=== PATIENT | female | born 1985 | race Two or more races ===

== ENCOUNTER 2016-07-07 13:38 | Inpatient (IN) | payer OTHER ==
[~2016-07-07] VITALS: Ht 160 cm; Wt 49.9 kg
[2016-07-07] VITALS (14 sets, daily range): BP systolic 95–138; BP diastolic 58–75
--- NOTE | 2016-07-07 13:40 | NUR ---
Note undone in EDM - 07/07/16 at 1441 by ANAND Bibra from home due to altered mental status. Patient is awake, however appears confused. Patient in mild distress, respiration even and unlabored. Pt sating well on room air. Skin is warm to touch and non diaphoretic. patient is afebrile. Bs in field showed "hi". Recheched done- "hi" result. Gowned pt and placed on tele monitor.
--- NOTE | 2016-07-07 13:40 | NUR ---
Bib from home due to altered mental status. Patient is awake, however appears confused. Patient in mild distress, with kusmaul repiration. Pt sating well on room air. Skin is warm to touch and non diaphoretic. patient is afebrile. Bs in field showed "hi". Recheched done- "hi" result. Gowned pt and placed on tele monitor.
--- NOTE | 2016-07-07 13:41 | NUR ---
MD Boateng at bedside for evaluation
--- NOTE | 2016-07-07 13:41 | NUR ---
Iv accessed to left wrist and right hand 20.covered with dd
[2016-07-07] MEDS ORDERED: IV SET PRIMARY PUMP SET 1 EA INFUS.SET MC ONE ×2 (13:45→14:08)
[2016-07-07] MEDS ORDERED: IV NS 0.9% 1,000 ML ONE ×3 (13:45→14:08)
--- NOTE | 2016-07-07 13:55 | NUR ---
RT AT BS
--- NOTE | 2016-07-07 13:55 | NUR ---
iv ns started at ordered
[2016-07-07 13:58] LABS: BASOPHILS # (AUTO) 0.1 /CMM (0.0-0.2); BASOPHILS % (AUTO) 0.6 % (0.0-2.0); EOSINOPHILS # (AUTO) 0.1 /CMM (0.0-0.7); EOSINOPHILS % (AUTO) 0.3 % (0.0-6.0); HEMATOCRIT 38 % (33-45); HEMOGLOBIN 11.8 g/dL (11.5-14.8); LYMPHOCYTES # (AUTO) 5.7 /CMM (0.8-4.8); MEAN CORPUSCULAR HEMOGLOBIN 31 PG (26.0-33.0); MEAN CORPUSCULAR HGB CONC 31 g/dl (31.0-36.0); MEAN CORPUSCULAR VOLUME 99 fL (82-100); MONOCYTES # (AUTO) 3.5 /CMM (0.1-1.30); MONOCYTES % (AUTO) 14.9 % (2.0-12.0); NEUTROPHILS # (AUTO) 14.3 /CMM (1.8-8.9); NEUTROPHILS % (AUTO) 60.2 % (43.0-81.0); PLATELET COUNT (AUTO) 811 /CMM (150-450); RDW COEFFICIENT OF VARIATION 17.1 (11.5-15.0); RED BLOOD CELL COUNT(AUTO) 3.88 MIL/uL (4.0-5.2); WHITE BLOOD COUNT (AUTO) 23.7 K/uL (4.3-11.0)
--- NOTE | 2016-07-07 13:59 | NUR ---
Servando Practice Nurse at bs for another peripheral line
[2016-07-07] MEDS ORDERED: IV NS 0.9% 1,000 ML BAG IV ONE ×2 (14:00→14:30)
[2016-07-07 14:07] LABS: ABG BASE EXCESS -32.4 mmol/L; ABG OXYGEN SATURATION 76.1 % (92.0-98.5); ABG PCO2 14.8 mmHg (35.0-45.0); ABG PH 6.751 (7.350-7.450); ABG PO2 61.7 mmHg (75.0-100.0); ABG TOTAL HEMOGLOBIN 12.1 G/dL (12.0-16.0); COHb 0.7 % (0.5-1.5); MetHb 0.4 % (0.0-1.5); O2Hb 75.3 % (94.0-97.0); SITE, ABG Right Brachial; VENT MODE, BG VBG
--- NOTE | 2016-07-07 14:15 | NUR ---
ICU 261
[2016-07-07 14:16] LABS: INR 0.93 (0.87-1.13); PROTHROMBIN TIME 9.7 SECS (9.5-12.7)
--- NOTE | 2016-07-07 14:22 | NUR ---
md nielsen at bedside
[2016-07-07 14:32] LABS: APPEARANCE,URINE Clear (CLEAR); BILIRUBIN,URINE Negative (NEGATIVE); BLOOD, URINE Negative Ery/uL (NEGATIVE); COLOR,URINE Yellow (YELLOW); KETONES,URINE >=160 (NEGATIVE); LEUKOCYTE ESTERASE ,URINE Negative (NEGATIVE); NITRITE, URINE Negative (NEGATIVE); PROTEIN,URINE 100 mg/dl (NEGATIVE); UROBILINOGEN,URINE 0.2 EU/dL (0.2)
[2016-07-07 14:33] LABS: UGLUCOSE 500 MG/DL mg/dL (NEGATIVE)
--- NOTE | 2016-07-07 14:39 | NUR ---
dealer support technician at bedside
[2016-07-07] MEDS ORDERED: FAMO20TA8 PO (14:44)
[2016-07-07] MEDS ORDERED: FERR-58 PO (14:44)
[2016-07-07] MEDS ORDERED: HYDR-552 PO (14:44)
[2016-07-07] MEDS ORDERED: ONDA4TAB5 PO (14:44)
[2016-07-07] MEDS ORDERED: ASCO500T9 PO (14:44)
[2016-07-07 14:51] LABS: ADD URINE CULTURE NO; BACTERIA,URINE None seen /HPF (None Seen); RBC,URINE NONE SEEN /HPF (0-2)
[2016-07-07 14:52] LABS: SQUAMOUS EPITHELIAL CELL,UR Rare /HPF (None Seen); URINE AMORPHOUS URATE Few /HPF (None Seen); WBC,URINE 0-2 /HPF (0-3)
[2016-07-07 14:53] LABS: ALBUMIN 2.7 g/dL (3.4-5.0); BILIRUBIN,DIRECT 0.1 mg/dL (0.0-0.2); BILIRUBIN,TOTAL 0.6 mg/dL (0.2-1.0); CALCIUM, SERUM 8.6 mg/dL (8.5-10.1); CREATININE 1.2 mg/dL (0.6-1.3); TOTAL PROTEIN, SERUM 8.5 g/dL (6.4-8.2)
--- NOTE | 2016-07-07 14:55 | NUR ---
SPOKE WITH PHLEBOTOMY SERVICES TECHNICIAN 181 WITH MELLISA TO REPORT DRUGS DISCOVERED ON PATIENT
[2016-07-07 14:58] LABS: CANNABINOID, URINE NEGATIVE (NEGATIVE); PHENCYCLIDINE SCREEN,URINE NEGATIVE (NEGATIVE)
[2016-07-07 15:00] LABS: POTASSIUM 6.2 mmol/L (3.5-5.1)
[2016-07-07] MEDS ORDERED: INSULIN REGULAR, HUMAN 100 UNIT in IV NS 0.9% 99 ML IV PRN ×4 (15:00→16:00)
--- NOTE | 2016-07-07 15:12 | NUR ---
CALLED PHARMACY FOR CALICIUM GLUCONATE
--- NOTE | 2016-07-07 15:21 | NUR ---
REPORT GIVEN TO YARA RN FOR [facility] ICU 261
[2016-07-07] MEDS ORDERED: ONDANSETRON HCL/PF 4 MG/2 ML VIAL ONE (15:26)
[2016-07-07] MEDS ORDERED: ONDANSETRON HCL/PF 4 MG/2 ML VIAL IVP ONE (15:30)
[2016-07-07] MEDS ORDERED: Calcium Gluconate 1GM/10ML 4.65 MEQ in IV D5W 50 ML IV ONE (15:30)
--- NOTE | 2016-07-07 15:48 | NUR ---
PATIENT TRASPORTED TO ICU VIA ACLS PROTOCOL
--- NOTE | 2016-07-07 15:57 | NUR ---
ADMIT NOTE PT BROUGHT INTO ER FOR ALTERED MENTAL STATUS AND KUSSMALS RESPIRATIONS. BLOOD GLUCOSE IN THE FIELD IS "HI" AND IN E.R. IT IS 852. UPON BODY ASSESSMENT IN ER, THEY FOUND A PACKAGE TUCKED INTO HER ARMPIT WHICH CONTAINED WHAT SEEMED TO BE ILLICIT SUBSTANCES SUSPICIOUS OF METHAMPHETAMINES. TOX SCREEN POSITIVE FOR AMPHETAMINES. RECVD IN ICU ON 8UNIT/HR INSULIN GTT. BLOOD GLUCOSE CHECKED "HI," ORDERS PLACED FOR STAT BMP TO DETERMINE BLOOD GLUCOSE. DR. MASON NOTIFIED FOR ORDERS. SHE IS ALSO INTERMITTENLY SCREAMING AT THE TOP OF HER LUNGS. IRRITABLE AND RESPONSIVE TO TOUCH BUT DOES NOT FOLLOW DIRECTIONS. SINUS TACH 110, SBP 130'S 99% SPO2 ON RA.
[2016-07-07 16:00] LABS: ANISOCYTOSIS 1+; BAND % (MANUAL) 4 % (0.0-5.0); LYMPHOCYTES % (MANUAL) 43 % (16-48); MONOCYTES % (MANUAL) 16 % (0-11.0); NEUTROPHILS % (MANUAL) 37 (42-76); PLATELET ESTIMATE INCREASED
[2016-07-07] MEDS ORDERED: SODIUM POLYSTYRENE SULFONATE 15 G/60 ML BOTTLE PO ONE (16:00)
[2016-07-07] MEDS ORDERED: ONDANSETRON HCL/PF 4 MG/2 ML VIAL IVP PRN (16:00)
[2016-07-07] MEDS ORDERED: ACETAMINOPHEN 325 MG TABLET PO PRN (16:00)
[2016-07-07] MEDS ORDERED: LORAZEPAM INJ 2 MG/ML VIAL IV PRN (16:00)
[2016-07-07] MEDS ORDERED: ENOXAPARIN SODIUM 30 MG/0.3 ML DISP.SYRIN SQ SCH (16:00)
[2016-07-07] MEDS ORDERED: SECONDARY IV SET 1 EA INFUS.SET MC ONE (16:52)
[2016-07-07] MEDS: LEVOFLOXACIN 750 MG /D5W 150ML 750 MG in PREMIX 1 EA IV SCH (16:56)
[2016-07-07 17:04] LABS: ALBUMIN 2.6 g/dL (3.4-5.0); BILIRUBIN,TOTAL 0.6 mg/dL (0.2-1.0); CALCIUM, SERUM 8.5 mg/dL (8.5-10.1); CREATININE 1.3 mg/dL (0.6-1.3); POTASSIUM 4.7 mmol/L (3.5-5.1); TOTAL PROTEIN, SERUM 8.9 g/dL (6.4-8.2)
[2016-07-07] MEDS: ENOXAPARIN SODIUM 40 MG/0.4 ML DISP.SYRIN SQ SCH (17:06)
[2016-07-07] MEDS: IV NS 0.9% 1,000 ML IV PRN (17:06)
--- NOTE | 2016-07-07 17:50 | NUR ---
DR. MASON NOTIFIED ABOUT GLUCOSE LEVEL AT 697. PER THE ALGORITHM INCREASE INSULIN TO 20 UNITS/HR. SHE IS AWARE OF 20 UNITS AND GIVES NO OTHER ORDERS.
--- NOTE | 2016-07-07 18:06 | NUR ---
BLOOD GLUCOSE AT 1800 IS 522. PER ALGORITHM, TITRATE INFUSION TO 20 UNITS/HR AND NOTIFY MD. DR. MASON AWARE OF 522, NO NEW ORDERS THE SUGAR IS TRENDING DOWN ON THIS ALGORITHM.
[2016-07-07] MEDS: BLOOD SUGAR DIAGNOSTIC 1 EACH STRIP IN SCH ×6 (18:10→23:00)
[2016-07-07 20:01] LABS: ABG BASE EXCESS -19.7 mmol/L; ABG OXYGEN SATURATION 97.9 % (92.0-98.5); ABG PCO2 15.9 mmHg (35.0-45.0); ABG PH 7.205 (7.350-7.450); ABG PO2 144.4 mmHg (75.0-100.0); ABG TOTAL HEMOGLOBIN 10.3 G/dL (12.0-16.0); AaDO2 36.5 mmHg; COHb 0.3 % (0.5-1.5); MetHb 0.6 % (0.0-1.5); SITE, ABG Left Radial; VENT MODE, BG N/C
--- NOTE | 2016-07-07 20:10 | NUR ---
BOBBIN TRUCKER: MD CALL: SPOKE WITH DR HARTLEY REGARDING CRITICAL ABG RESULT ,JUST DONE , BECAUSE THE PREVIOUS ABG DONE IN ER LOOKS CRITICAL, NOTIFIED DR HARTLEY: PH 7.205, PCO2 15.9, PO2 144.4, HCO3 6.1., ORDERS TO CHECK ABG IN AM AT 0800, CONTINUE INSULIN DRIP PER PROTOCOL, ACCU CHECK Q1 LAST BS 370, NS AT 150 ML/HR WHICH OS ONGOING.... RECEIVED PT FROM YARA/MAXIMINO, PT ADMITTED TODAY DX DKA, ONGOING INSULIN DRIP PER PROTOCOL ALGORITHM # 4, PT IS STILL ALTERED, DROWSY, RESPONSIVE TO VERBAL AND TOUCH STIMULATION ASKING WATER, PT IS NPO. NS RUNNING AT 150 ML/HR. JEFFERS CATH TO GRAVITY DRAINING GOOD URINE OUTPUT. V/S STABLE. MIDLINE INSERTED BY YARA/MAXIMINO,LAC #18. ALL NEEDS ATTENDED. SKIN IS INTACT. PLAN: CMP Q4, CONTINUE DRIP AT THIS TIME, FOLLOW THE PROTOCOL. ONGOING MONITORING...
--- NOTE | 2016-07-07 22:08 | NUR ---
METROLOGY SPECIALIST: REDRAWN CMP AT 2200 DUE TO HEMOLYZED BLOOD, NEXT WILL BE AT 0200 AM. LAST BLOOD SUGAR 200, INSULIN DRIP DECREASED TO 3 UNITS/HR PER PROTOCOL. KEEP MONITORING....
[2016-07-07 22:37] LABS: ALBUMIN 2.1 g/dL (3.4-5.0); BILIRUBIN,TOTAL 0.5 mg/dL (0.2-1.0); CALCIUM, SERUM 8.1 mg/dL (8.5-10.1); POTASSIUM 3.7 mmol/L (3.5-5.1)
[2016-07-08] VITALS (29 sets, daily range): BP systolic 103–132; BP diastolic 57–82
[2016-07-08] MEDS: BLOOD SUGAR DIAGNOSTIC 1 EACH STRIP IN SCH ×8 (00:58→21:23)
[2016-07-08] MEDS: IV NS 0.9% 1,000 ML IV PRN (01:21)
[2016-07-08 02:31] LABS: BILIRUBIN,TOTAL 0.4 mg/dL (0.2-1.0); CALCIUM, SERUM 7.9 mg/dL (8.5-10.1); POTASSIUM 3.8 mmol/L (3.5-5.1); TOTAL PROTEIN, SERUM 6.8 g/dL (6.4-8.2)
[2016-07-08] MEDS ORDERED: IV D5/ 0.9% NACL 1,000 ML IV ONE (02:51)
--- NOTE | 2016-07-08 02:51 | NUR ---
RFID MANAGER; CALL REGARDING CMP RESULT RELAYED TO DR HARTLEY, ORDERS TO STOP INSULIN DRIP, CHANGE IV FLUID TO D5NS AT 100 ML/HR BECAUSE PT UNABLE EAT, ACCU CHECK Q4H WITH MILD INSULIN COVERAGE.
[2016-07-08] MEDS: IV D5/ 0.9% NACL 1,000 ML IV PRN ×2 (02:55→16:13)
[2016-07-08] MEDS ORDERED: DEXTROSE 50%-WATER 50 ML DISP.SYRIN IV PRN ×2 (03:00→18:30)
[2016-07-08] MEDS ORDERED: INSULIN REGULAR, HUMAN 100 UNIT/ML 10 ML VIAL ONE (04:45)
[2016-07-08] MEDS: INSULIN REGULAR, HUMAN 100 UNIT/ML 3 ML VIAL SQ PRN ×5 (05:47→21:36)
--- NOTE | 2016-07-08 07:30 | NUR ---
ICU/RN: PT HOSTILE TO CARE, SCREAMS "DON'T TOUCH ME UNLESS YOU'LL FEED ME." REFUSED AM LABS AND SKIN AX. WILL REATTEMPT AT LATER TIME.
[2016-07-08] MEDS: PANTOPRAZOLE 40 MG VIAL IV SCH (08:04)
--- NOTE | 2016-07-08 08:45 | NUR ---
ICU/RN: PT NOTED TO BE DROWSY, A&OX3 WITH PERIODS OF FORGETFULNESS, ORIENTED TO PLACE AND TIME. AGREED TO HAVE AM LABS, ABG AND BLOOD GLUCOSE CHECK. REINFORCED NEED FOR POC COMPLIANCE. WILL CONT TO EDUCATE.
[2016-07-08 09:27] LABS: INR 0.96 (0.87-1.13); PROTHROMBIN TIME 10.3 SECS (9.5-12.7)
[2016-07-08 09:32] LABS: LACTIC ACID 0.8 mmol/L (0.4-2.0)
[2016-07-08 09:41] LABS: ALBUMIN 1.9 g/dL (3.4-5.0); BILIRUBIN,TOTAL 0.3 mg/dL (0.2-1.0); CALCIUM, SERUM 7.6 mg/dL (8.5-10.1); MAGNESIUM 1.3 mg/dL (1.8-2.4); PHOSPHORUS 2.6 mg/dL (2.5-4.9); POTASSIUM 3.4 mmol/L (3.5-5.1); TOTAL PROTEIN, SERUM 6.5 g/dL (6.4-8.2)
[2016-07-08 09:45] LABS: CREATINE KINASE MB 0.8 ng/mL (0-3.6)
[2016-07-08 09:46] LABS: THYROID STIMULATING HORMONE 2.701 uIU/mL (0.358-3.74)
[2016-07-08 09:54] LABS: BASOPHILS % (AUTO) 0.2 % (0.0-2.0); EOSINOPHILS # (AUTO) 0.1 /CMM (0.0-0.7); EOSINOPHILS % (AUTO) 1.2 % (0.0-6.0); HEMATOCRIT 26 % (33-45); HEMOGLOBIN 8.5 g/dL (11.5-14.8); LYMPHOCYTES # (AUTO) 1.6 /CMM (0.8-4.8); LYMPHOCYTES % (AUTO) 18.5 % (20.0-44.0); MEAN CORPUSCULAR HEMOGLOBIN 29 PG (26.0-33.0); MEAN CORPUSCULAR HGB CONC 33 g/dl (31.0-36.0); MEAN CORPUSCULAR VOLUME 88 fL (82-100); MONOCYTES % (AUTO) 11.2 % (2.0-12.0); NEUTROPHILS % (AUTO) 68.9 % (43.0-81.0); PLATELET COUNT (AUTO) 481 /CMM (150-450); RDW COEFFICIENT OF VARIATION 17.4 (11.5-15.0); RED BLOOD CELL COUNT(AUTO) 2.93 MIL/uL (4.0-5.2); WHITE BLOOD COUNT (AUTO) 8.8 K/uL (4.3-11.0)
[2016-07-08] MEDS ORDERED: IV NS 0.9% 500 ML IV ONE ×2 (12:00→12:30)
[2016-07-08] MEDS ORDERED: IV SET PRIMARY PUMP SET 1 EA INFUS.SET MC ONE (12:07)
[2016-07-08] MEDS ORDERED: Magnesium 1 GM/2 ML VIAL IV ONE (13:00)
[2016-07-08] MEDS ORDERED: SECONDARY IV SET 1 EA INFUS.SET MC ONE (13:45)
[2016-07-08] MEDS: Magnesium 1GM/D5W 100ML PREMIX 100 ML IV SCH ×2 (13:49→14:46)
--- NOTE | 2016-07-08 14:00 | NUR ---
ICU/RN: PT NOW WITH INCREASING ALERTNESS, A&OX3, TOLERATED LUNCH ATE 75%. NO S/S ASPIRATION. FC DC'D PER COMBINATION PRESSER ORDERS. TOLERATED WELL. URINE SENT TO LAB.
--- NOTE | 2016-07-08 15:37 | NUR ---
ICU/RN: ISABELLE SKINNER NP NOTIFIED OF NEED FOR HOME MED RECONCILIATION. AWAITING ORDERS.
[2016-07-08] MEDS: LEVOFLOXACIN 750 MG /D5W 150ML 750 MG in PREMIX 1 EA IV SCH (16:13)
[2016-07-08 16:25] LABS: APPEARANCE,URINE SL CLOUDY (CLEAR); BILIRUBIN,URINE NEGATIVE (NEGATIVE); BLOOD, URINE NEGATIVE Ery/uL (NEGATIVE); COLOR,URINE YELLOW (YELLOW); KETONES,URINE TRACE (NEGATIVE); LEUKOCYTE ESTERASE ,URINE NEGATIVE (NEGATIVE); NITRITE, URINE NEGATIVE (NEGATIVE); PROTEIN,URINE NEGATIVE (NEGATIVE); UGLUCOSE NEGATIVE (NEGATIVE); UROBILINOGEN,URINE 0.2 EU/dL (0.2)
[2016-07-08 16:56] LABS: ADD URINE CULTURE NO; BACTERIA,URINE Rare /HPF (None Seen); COARSE GRANULAR CASTS,URINE Few /LPF (None Seen); FINE GRANULAR CASTS,URINE Few /LPF (None Seen); SQUAMOUS EPITHELIAL CELL,UR Few /HPF (None Seen)
[2016-07-08] MEDS ORDERED: IV NS 0.9% 1,000 ML IV PRN (18:30)
--- NOTE | 2016-07-08 18:30 | NUR ---
ICU/RN: PT TRANSFERRED TO MED/SURG 318 IN STABLE CONDITION NO S/S PAIN OR DISTRESS. NO N/V, TOLERATED DINNER WELL. ALL PAPERWORK AND BELONGINGS ACCOUNTED FOR. CARE ENDORSED TO MAXIMINO RIVERA FOR JAMAL.
--- NOTE | 2016-07-08 18:30 | NUR ---
MS/BLOW MOLD TECHNICIAN FROM ICU PT. WAS TRANSFERRED IN A BED FROM ICU TO ROOM 318. PT. IS IN STABLE CONDITION, A&OX4. NO S/S OF SOB, BREATHING EVENLY ON ROOM AIR. NO S/S OF DISTRESS. PT. VITAL SIGNS ASSESSED. PT. LAST BLOOD SUGAR WAS 236, AND 6 UNITS OF INSULIN WAS GIVEN IN ICU. PT. IS ON DIABETIC DIET AND HAD DINNER IN ICU. JEFFERS WAS DISCONTINUED IN ICU, AND NO INITIAL VOID POST JEFFERS. PT. WAS ADVISED TO LET NURSE KNOW WHEN SHE HAS URGE TO VOID TO ASSIST HER OUT OF BED. IV FLUIDS, D5 NS DISCONTINUED FROM ICU. INSULIN DRIP DISCONTINUED IN ICU. BED IS IN LOW POSITION, 2 SIDE RAILS UP, CALL LIGHT WITHIN REACH, AND ALL NEEDS ATTENDED TO. WILL ENDORSE REPORT TO BAKERY PASTRY INTERNSHIP NURSE.
--- NOTE | 2016-07-08 20:00 | NUR ---
MS VEHICLE OPERATOR INITIAL NOTES RECEIVED PT IN BED LYING DOWN RESTING BUT AROUSES TO TOUCH. DENIES ANY PAIN OR ANY DISCOMFORT AT THIS TIME. SHE JUST STATED SHE FEEL TIRED LYING DOWN ENCOURAGED HER TO SIT FOR A WHILE AND OFFERED SOMETHING OT DRINK . SHE STATED MAYBE SANDWICH LATER. SPOKE TO HER THAT I WILL CHECK HER BLOOD SUGAR FIRST THE I WILL SERVE HER SANDWICH . 3 HEPLOCK AT THIS TIME AND ALL PATENT AND INTACT. AMBULATE WITHOUT ANY DISCOMFORT, DENIES ANY DIZZINESS AT THIS TIME. KEPT HER COMFORTABLE AT ALL TIMES. WILL CONTINUE TO MONITOR. PLACE CALL LIGHT AT REACH.
[2016-07-08] MEDS: ENOXAPARIN SODIUM 40 MG/0.4 ML DISP.SYRIN SQ SCH ×2 (21:00→21:37)
--- NOTE | 2016-07-08 21:33 | NUR ---
MS PYROMETER TEMPERATURE REGULATOR NOTES BLOOD SUGAR 231, 10 UNITS OF LEVEMIR GIVEN JONATAN SQ WELL HER INSULIN 4 UNITS, NO SIGNS OF HYPER GLYCEMIA NOTED, SNACKS ALSO SERVED. WILL CONTINUE TO MONITOR.
[2016-07-08] MEDS ORDERED: INSULIN DETEMIR 100 UNIT/ML CARTRIDGE SQ SCH (22:00)
--- NOTE | 2016-07-09 | NUR ---
MOTORSPORTS TECHNICIAN/NOTES PT SLEEPING COMFORTABLY IN BED WITHOUT ANY ACUTE DISTRESS NOTED. KEPT HER WARM AND COMFORTABLE AT ALL TIMES. WILL CONTINUE TO MONITOR. PLACE CALL LIGHT AT REACH.
[2016-07-09] MEDS: BLOOD SUGAR DIAGNOSTIC 1 EACH STRIP IN SCH ×2 (06:15→11:43)
[2016-07-09] MEDS: INSULIN REGULAR, HUMAN 100 UNIT/ML 3 ML VIAL SQ PRN ×2 (06:17→11:51)
--- NOTE | 2016-07-09 07:00 | NUR ---
ORGANIZATIONAL DEVELOPMENT CONSULTANT/CLOSING NOTES PT BACK TO REST AFTER BLOOD SUGAR CHECKED DONE. 135, 2 UNITS OF INSULIN GIVEN ORDERED, NO SIGNS OF HYPO/HYPER GLYCEMIA NOTED. ALL DUE MEDS GIVEN AND ALL NEEDS MET. STABLE JONATAN THE NIGHT . ENCOURAGE HER TO SIT IN THE CHAIR OR AMBULATE WELL FOR HER OWN GOOD AND PT UNDERSTOOD WELL. ENDORSE TO AM NURSE FOR CONTINUITY OF CARE. PLACE CALL LIGHT AT REACH.
[2016-07-09 08:00] VITALS: BP 115/80
[2016-07-09 08:16] LABS: BASOPHILS # (AUTO) 0.1 /CMM (0.0-0.2); EOSINOPHILS # (AUTO) 0.2 /CMM (0.0-0.7); HEMATOCRIT 28 % (33-45); HEMOGLOBIN 9.1 g/dL (11.5-14.8); LYMPHOCYTES % (AUTO) 47.5 % (20.0-44.0); MEAN CORPUSCULAR HEMOGLOBIN 29 PG (26.0-33.0); MEAN CORPUSCULAR HGB CONC 33 g/dl (31.0-36.0); MEAN CORPUSCULAR VOLUME 88 fL (82-100); MONOCYTES % (AUTO) 15.8 % (2.0-12.0); NEUTROPHILS % (AUTO) 32.7 % (43.0-81.0); PLATELET COUNT (AUTO) 455 /CMM (150-450); RDW COEFFICIENT OF VARIATION 17.5 (11.5-15.0); RED BLOOD CELL COUNT(AUTO) 3.13 MIL/uL (4.0-5.2); WHITE BLOOD COUNT (AUTO) 6.2 K/uL (4.3-11.0)
[2016-07-09] MEDS: PANTOPRAZOLE 40 MG VIAL IV SCH (08:23)
[2016-07-09 08:56] LABS: ALBUMIN 1.7 g/dL (3.4-5.0); BILIRUBIN,TOTAL 0.2 mg/dL (0.2-1.0); CALCIUM, SERUM 7.6 mg/dL (8.5-10.1); CREATININE 0.5 mg/dL (0.6-1.3); TOTAL PROTEIN, SERUM 6.2 g/dL (6.4-8.2)
[2016-07-09] MEDS ORDERED: ASCORBIC ACID 500 MG TABLET PO SCH (09:00)
[2016-07-09] MEDS ORDERED: FERROUS SULFATE (325 MG) 325 MG/TAB TABLET PO SCH (09:00)
--- NOTE | 2016-07-09 10:00 | NUR ---
RN NOTES RECEIVED PT BED, A/Ox4, RESPIRATION EVEN AND UNLABORED, NO SOB NOTED, R HAND AND L WRIST AND LAC IV SITE CDI, SR UPx3, BED LOCKED AND IN LOWEST POSITION , CONTINUE TO MONITOR PT CLOSELY AND NOTIFY MD FOR ANY SIGNIFICANT CHANGES.
[2016-07-09 12:49] LABS: NEUTROPHILS % (MANUAL) 34 (42-76)
[2016-07-09 12:50] LABS: ANISOCYTOSIS 2+; EOSINOPHILS % (MANUAL) 3 % (0-4); LYMPHOCYTES % (MANUAL) 48 % (16-48); MONOCYTES % (MANUAL) 15 % (0-11.0); PLATELET ESTIMATE INCREASED
[2016-07-09] MEDS: POTASSIUM CHLORIDE 20 MEQ TAB.PRT.SR PO SCH ×3 (12:55→15:01)
[2016-07-09] MEDS ORDERED: INSULIN ASPART NOVOLOG 100 UNIT/ML CARTRIDGE SQ SCH (13:00)
--- NOTE | 2016-07-09 15:24 | NUR ---
RN NOTES POTASSIUM REPLACEMENT COMPLETED , DISCHARGE INSTRUCTION GIVEN , PT VERBALIZES UNDERSTATING , PT WAITING FOR HER FAMILY TO PICK HER UP .
--- NOTE | 2016-07-09 15:47 | NUR ---
RN NOTES IV SITES DISCONTINUED, P LEFT THE FLOOR AMBULATORY ACCOMPANIED BY STAFF AND FAMILY MEMBERS TO MAIN ENTRANCE IN STABLE CONDITION .
== END 2016-07-09 15:30 | disposition home or self-care (01) | DRG 420 ==
LOC: ER 13:41 → ICU 14:41 → MED 07-08 18:43
PROVIDERS: ADMIT Internal Medicine; ATTEND Internal Medicine
PROC: 05H633Z Insertion of Infusion Device into Left Subclavian Vein, Percutaneous Approach (ICD-10-PCS; principal; 2016-07-07)
DX: E10.10 Type 1 diabetes mellitus with ketoacidosis without coma (principal); G93.41 Metabolic encephalopathy; E44.0 Moderate protein-calorie malnutrition; Z79.4 Long term (current) use of insulin; Z91.14 Patient's other noncompliance with medication regimen; Z91.19 Patient's noncompliance with other medical treatment and regimen; D72.828 Other elevated white blood cell count; D75.89 Other specified diseases of blood and blood-forming organs; F15.90 Other stimulant use, unspecified, uncomplicated; Z68.1 Body mass index [BMI] 19.9 or less, adult; E87.8 Other disorders of electrolyte and fluid balance, not elsewhere classified
CPT/HCPCS: 36415; 36600; 71010-TC; 80048-TC; 80053-TC; 80061-TC; 80076-TC; 80305; 81000-TC; 82140-TC; 82553-TC; 82803-TC; 82962-TC; 83605-TC; 83735-TC; 84100-TC; 84439-TC; 84443-TC; 84484-TC; 84703-TC; 85025-TC; 85730-TC; 87040-TC; 87081-TC; 87086-TC; 93307-TC; A4216; A4606; C9113; J0610; J1650; J1815; J1956; J2405; J3475; J7030; J7040; J7042; J7060; Z7610

== ENCOUNTER 2022-06-04 22:26 | Emergency (ER) | payer OTHER ==
[~2022-06-04] VITALS: Ht 165.1 cm; Wt 88.9 kg
[~2022-06-04 22:26] MED LIST: ASCO-352 PO; FAMO20TA8 PO; FERR325T24 PO; HYDR-4384 PO; ONDA4TAB5 PO
--- NOTE | 2022-06-04 22:32 | NUR ---
BIBRA FROM HOME C/O BG OF 39. GIVEN D10 250MLS BY RA. UPON TRIAGE BG 129. PT PLACED COMFORTABLY IN BED, VITALS CHECKED. PT AAOX4, ABLE TO MAKE NEEDS KNOWN.
--- NOTE | 2022-06-04 22:34 | NUR ---
BG 120
--- NOTE | 2022-06-04 23:00 | NUR ---
PT STATES SHE'S ON ADMELOG INSULIN PUMP FOR DM TYPE 1
--- NOTE | 2022-06-04 23:00 | NUR ---
PT EATING SANDWICH, DRANK 8OZ JUICE. MADE AWARE THAT BLOOD SUGAR WILL BE RE-CHECKED IN 30 MIN.
[2022-06-04] MEDS ORDERED: ACETAMINOPHEN ES 500 MG TABLET ONE (23:27)
[2022-06-04] MEDS: ACETAMINOPHEN ES 500 MG TABLET PO ONE (23:28)
--- NOTE | 2022-06-04 23:30 | NUR ---
DINING CAR HOP AT BEDSIDE
--- NOTE | 2022-06-04 23:39 | NUR ---
FI=[id number]
[2022-06-04 23:50] LABS: BASOPHILS # (AUTO) 0.1 K/uL (0.0-0.2); BASOPHILS % (AUTO) 1.5 % (0.0-2.0); EOSINOPHILS % (AUTO) 1.6 % (0.0-6.0); HEMATOCRIT 26 % (33-45); HEMOGLOBIN 7.9 g/dL (11.5-14.8); LYMPHOCYTES # (AUTO) 2.3 K/uL (0.8-4.8); LYMPHOCYTES % (AUTO) 25.5 % (20.0-44.0); MEAN CORPUSCULAR HGB CONC 31 g/dl (31.0-36.0); MEAN CORPUSCULAR VOLUME 79 fL (82-100); MONOCYTES # (AUTO) 0.8 K/uL (0.1-1.30); MONOCYTES % (AUTO) 8.7 % (2.0-12.0); NEUTROPHILS # (AUTO) 5.7 K/uL (1.8-8.9); NEUTROPHILS % (AUTO) 62.7 % (43.0-81.0); PLATELET COUNT (AUTO) 649 K/uL (150-450); RED BLOOD CELL COUNT(AUTO) 3.31 MIL/uL (4.0-5.2); WHITE BLOOD COUNT (AUTO) 9.1 K/uL (4.3-11.0)
[2022-06-05 00:09] LABS: CALCIUM, SERUM 8.5 mg/dL (8.5-10.1); POTASSIUM 3.4 mmol/L (3.5-5.1)
--- NOTE | 2022-06-05 00:18 | NUR ---
LI=[id number]
[2022-06-05 00:24] LABS: ALBUMIN 1.7 g/dL (3.4-5.0); BILIRUBIN,TOTAL 0.1 mg/dL (0.2-1.0); TOTAL PROTEIN, SERUM 7.3 g/dL (6.4-8.2)
[2022-06-05] MEDS: IV NS 0.9% 1,000 ML IV ONE (00:30)
--- NOTE | 2022-06-05 01:05 | NUR ---
KK=[id number]
--- NOTE | 2022-06-05 02:25 | NUR ---
BG 159
--- NOTE | 2022-06-05 02:35 | NUR ---
PROCUREMENT ENGINEER AT BEDSIDE
--- NOTE | 2022-06-05 03:00 | NUR ---
PT C/O HEADACHE, 08/03. NOTIFIED. ORDERS RECEIVED FOR BENADRYL & COMPAZINE.
[2022-06-05 03:01] LABS: CALCIUM, SERUM 7.8 mg/dL (8.5-10.1)
--- NOTE | 2022-06-05 03:02 | NUR ---
[id number]
[2022-06-05] MEDS ORDERED: diphenhydrAMINE HCL 50 MG/ML VIAL ONE (03:12)
[2022-06-05] MEDS ORDERED: PROCHLORPERAZINE EDISYLATE 10 MG/2 ML VIAL ONE (03:12)
[2022-06-05] MEDS: diphenhydrAMINE HCL 50 MG/ML VIAL IV ONE (03:13)
[2022-06-05] MEDS: PROCHLORPERAZINE EDISYLATE 10 MG/2 ML VIAL IVP ONE (03:13)
--- NOTE | 2022-06-05 04:24 | NUR ---
AUTH# FOR AMBULANCE [id number]
--- NOTE | 2022-06-05 04:27 | NUR ---
BG 201
--- NOTE | 2022-06-05 05:26 | NUR ---
ZI=[id number]
--- NOTE | 2022-06-05 05:56 | NUR ---
PT ACCEPTED TO [facility] BY DR HINOJOSA. ROOM 410-A. # FOR REPORT [phone]. YELENA - ALTERATIONS SUPERVISOR [phone].
--- NOTE | 2022-06-05 06:35 | NUR ---
ZO=[id number]
--- NOTE | 2022-06-05 06:44 | NUR ---
[facility] CALLED S TRANSPORT ARRANGED FOR 07:45
--- NOTE | 2022-06-05 07:31 | NUR ---
REPORT GIVEN TO DAYSI STANTON FOR CONTINUATION OF CARE.
--- NOTE | 2022-06-05 07:34 | NUR ---
REPORT GIVEN TO MAXIMINO FORMAN FOR CONTINUITY OF CARE
--- NOTE | 2022-06-05 07:40 | NUR ---
Patient in bed, sleeping, easily aroused. AOx4, able to express her concerns. Patient with no signs of distress or discomfort. Patient states she is aware of plan of care, verbalized agreeement. All safety precautions taken, will continue to monitor throughout shift and provide care as needed.
--- NOTE | 2022-06-05 09:09 | NUR ---
Transport/[place]qi professional, unit #290. Cam. Transport her to garbage pick up worker pt and trasnfer to [facility]. Called [phone], spoke with Magdalena and provided updates. Patient cleared for transfer.
--- NOTE | 2022-06-05 09:12 | NUR ---
Blood Sugar 124.
--- NOTE | 2022-06-05 09:17 | NUR ---
Spoke with patient, made her aware of transfer and plan of care. Patient verbalized agreement.
[2022-06-05 09:34] VITALS: BP 120/66
== END 2022-06-05 09:30 | disposition short-term general hospital (02) ==
LOC: ER 22:28
DX: E10.65 Type 1 diabetes mellitus with hyperglycemia (principal); N17.9 Acute kidney failure, unspecified; Z20.822 Contact with and (suspected) exposure to COVID-19; Z91.018 Allergy to other foods; Z79.899 Other long term (current) drug therapy
CPT/HCPCS: 99285; 85025; 80048 ×2; 80076; 36415 ×2; 82962 ×10; 84702; 96374; 96375; 87426; J0780; J1200; J7030; C9803